=== PATIENT | male | born 1950 | race African-American/Black ===

== ENCOUNTER 2016-06-26 18:07 | Inpatient (IN) | payer SELFPAY ==
[~2016-06-26] VITALS: Ht 170.2 cm; Wt 70.2 kg
--- NOTE | 2016-06-26 18:21 | NUR ---
PT TO ROOM 14. GAIT STEADY. CALL LIGHT WITHIN REACH.
--- NOTE | 2016-06-26 19:16 | NUR ---
PT WAS SHARON COJAMES'ED ON VERBAL OPRDER DR URENA PT HAD SPOTS OF RED DRAINAGE ON MEATUS,DISTENTION THERE WAS A RED CLOT INITIALLY DRAINING THRU THE CQATHN PT HAD 1800CC OUT AND CLAMPED.DR Shimon TROY PT TOLERATED WELL PT REPORTED S/S DYSURIAS X 2+ WEEKS.WORSE PAST 1 WEEK.NO FEVERS.NO HX PROSTSTE .A/O X3
[2016-06-26 19:28] LABS: URINE BILIRUBIN - DIPSTICK NEGATIVE (NEGATIVE); URINE BLOOD DIPSTICK LARGE (NEGATIVE); URINE COLOR YELLOW; URINE GLUCOSE - DIPSTICK NEGATIVE (NEGATIVE); URINE KETONE NEGATIVE (NEGATIVE); URINE LEUK ESTERASE NEGATIVE (NEGATIVE); URINE NITRITE - DIPSTICK NEGATIVE (Negative); URINE PH 5.5 (4.5-8.0); URINE PROTEIN - DIPSTICK NEGATIVE (NEG-TRACE); URINE UROBILINOGEN - DIPSTICK 0.2 E.U./dL (0.2)
[2016-06-26 19:30] LABS: URINE CLARITY HAZY
[2016-06-26 19:44] LABS: URINE RBC 25-50 RBC/hpf (0-5)
--- NOTE | 2016-06-26 20:10 | NUR ---
PT FEELS NO PAIN HERRERA CATH CONTINUES TO DRAIN RED TINGED URINE IN NO DISTRESS
[2016-06-26 20:17] LABS: HEMATOCRIT 40.1 % (39.0-50.0); HEMOGLOBIN 13.1 g/dl (14.0-18.0); IMMATURE GRANULOCYTES 2.7 % (0.0-1.0); MEAN CELL VOLUME 92.6 fL CALC (80.0-100.0); MEAN CORPUSCULAR HGB 30.3 pG CALC (26.0-32.0); MEAN CORPUSCULAR HGB CONC 32.7 g/L CALC (32.0-36.0); NEUT# 9.34 thou/uL (1.82-7.42); RED BLOOD COUNT 4.33 mill/uL (4.70-6.10); RED CELL DISTRI WIDTH 13.3 % (11.5-15.5)
[2016-06-26 20:35] LABS: ALBUMIN 4.1 g/dL (3.2-5.0); BILIRUBIN, TOTAL 0.5 mg/dL (0.0-1.4); CALCIUM 9.6 mg/dL (8.4-10.2); POTASSIUM 4.1 mmol/l (3.5-5.1); TOTAL PROTEIN 8.1 g/dL (6.3-8.2)
[2016-06-26 20:38] LABS: CREATININE 13.1 mg/dL (0.7-1.3)
--- NOTE | 2016-06-26 21:43 | NUR ---
PHONE REPORT TO NURSE DAVIS ON MS
--- NOTE | 2016-06-26 21:53 | NUR ---
TO MS VIA STRETCHER IN IMPROVED STABLE CONDITION
[2016-06-26 22:10] VITALS: BP 171/70
--- NOTE | 2016-06-26 22:10 | NUR ---
PATIENT ADMITTED FROM ER VIA STRETCHER WITH ER STAFF IN ATTENDANCE. PATIENT ASSISTED FROM THE STRETCHER TO THE STANDING SCALE AND THEN TO BED-SLIGHTLY UNSTEADY GAIT. PATIENT IS AWAKE ALERT AND ORIENTEDX3. PATIENT WITH HERRERA CATH DARINING PINK TINGED URINE AT THIS TIME. PATIENT IS BEING ADMITTED FOR OBSTRUCTIVE UROPATHY-STATES THAT HE HAS BEEN HAVING TROUBLE URINATING FOR LAST COUPLE WEEKS AND WHEN HE DOES URINATE IT IS BLOODY. BROUGHT TO ER BY HIS FRIEND TENZIN. PATIENT DENIES ANY PMH OR PSH AT THIS TIME. DENIES ANY ALLERGIES. PATIENT WITH IV SITE TO LEFT AC-IVF LR HUNG AND INFUSING AT 100CC/HR. SITE APPEARS HEALTHY AT THIS TIME. ORIENTED TO ROOM AND SURROUNDINGS. PROVIDED WITH SANDWICH AND DRINK. INSTRUCTED ON USE OF NURSE CALL LIGHT SYSTEM AND TV REMOTE. SAFETY PRECAUTIONS REVIEWED WITH PATIENT. CALLLIGHT IN REACH. WILL CONT TO MONITOR.
--- NOTE | 2016-06-27 00:05 | NUR ---
PATIENT INCONT OF LARGE AMT OF YELLOWISH-BROWN STOOL IN BED AND THEN ON THE FLOOR ON THE WAY TO THE BR. PATIENT ASSISTED WITH SHOWER AND RETURNED TO THE BED. HERRERA CATH CONT TO DRAIN PINK TINGED URINE. CALL LIGHT IN REACH. WILL CONT TO MONITOR.
[2016-06-27 04:30] VITALS: BP 163/67
--- NOTE | 2016-06-27 04:47 | NUR ---
PATIENT RESTING IN BED-HERRERA DRAINING LIGHT PINK URINE AT THIS TIME. PATIENT WITH NO COMPLAINTS AT THIS TIME. CALL LIGHT IN REACH. WILL CONT TO MONITOR.
[2016-06-27 06:41] LABS: ALBUMIN 3.3 g/dL (3.2-5.0); CALCIUM 9.3 mg/dL (8.4-10.2); MAGNESIUM 2.6 mg/dL (1.6-2.3); POTASSIUM 4.3 mmol/l (3.5-5.1)
--- NOTE | 2016-06-27 07:30 | NUR ---
PT IN SEMI FOWLERS POSITION; NO COMPLAINTS VOICED; CALL NAVARRO WITHIN REACH; WILL CONTINUE TO MONITOR
[2016-06-27 07:40] VITALS: BP 132/59
[2016-06-27 10:50] VITALS: BP 127/60
--- NOTE | 2016-06-27 11:46 | NUR ---
PT VISITING WITH FAMILY; DENIES PAIN; HERRERA CATH DRAINING BLOOD TINGE URINE TO BEDSIDE DRAIN; TELE MONITOR IN PLACE; CALL NAVARRO WITHIN REACH; WILL CONTINUE TO MONITOR.
--- NOTE | 2016-06-27 14:52 | NUR ---
DR. EVANS IN TO SEE PT; PLAN OF CARE DISCUSSED
[2016-06-27 15:08] VITALS: BP 123/57
--- NOTE | 2016-06-27 16:00 | NUR ---
PT IN SUPINE POSITION WATCHING TV; DENIES PAIN; HERRERA CONTINUES TO DRAIN BLOOD TINGE URINE TO BEDSIDE DRAIN; CALL NAVARRO WITHIN REACH; WILL CONTINUE TO MONITOR.
--- NOTE | 2016-06-27 18:28 | NUR ---
DR. PERLA ROCKWELL SERVICE NOTIFIED OF CONSULT.
--- NOTE | 2016-06-27 18:41 | NUR ---
DR. DUNCAN GIVEN UPDATE ON PT STATUS; STATES THAT HE WILL SEE THE PT 06/28/16 IN THE AFTERNOON
--- NOTE | 2016-06-27 18:45 | NUR ---
RECEIVED SHIFT REPORT FROM YOKASTA JANE. PATIENT LAYUNG IN BED AND APPEARS NOT TO BE IN ANY DISCOMFORT. PATIENT DENIES PAIN. LR INFUSING AT 100CC/HR VIA PUMP WITHOUT DIFFICULTY.
[2016-06-27 19:10] VITALS: BP 137/62
[2016-06-28] VITALS (7 sets, daily range): BP systolic 130–152; BP diastolic 60–69
--- NOTE | 2016-06-28 | NUR ---
PATIENT RESTING QUIETLY. NO ACUTE DISTRESS NOTED.
--- NOTE | 2016-06-28 04:00 | NUR ---
NO ACUTE CHANGES NOTED IN PATIENT'S CONDITION. LAYING IN BED WITH EYES CLOSED AND APPEARS NOT TO BE IN ANY DISTRESS OR DISCOMFORT.
[2016-06-28 05:24] LABS: HEMATOCRIT 35.1 % (39.0-50.0); HEMOGLOBIN 11.1 g/dl (14.0-18.0); IMMATURE GRANULOCYTES 3.5 % (0.0-1.0); MEAN CELL VOLUME 96.4 fL CALC (80.0-100.0); MEAN CORPUSCULAR HGB 30.5 pG CALC (26.0-32.0); MEAN CORPUSCULAR HGB CONC 31.6 g/L CALC (32.0-36.0); NEUT# 5.89 thou/uL (1.82-7.42); RED BLOOD COUNT 3.64 mill/uL (4.70-6.10); RED CELL DISTRI WIDTH 13.5 % (11.5-15.5)
[2016-06-28 05:25] LABS: BUN 17 mg/dL (8-23); CALCIUM 9.5 mg/dL (8.4-10.2); CARBON DIOXIDE 29 mmol/l (22-30); CHLORIDE 109 mmol/l (95-108); GFR > 60 ML/MIN (>=60 (CALC)); GFR FOR AFR.AMER. > 60 ML/MIN (>=60 (CALC)); GLUCOSE 91 mg/dL (82-115); MAGNESIUM 1.8 mg/dL (1.6-2.3); POTASSIUM 4.3 mmol/l (3.5-5.1); SODIUM 144 mmol/l (137-146)
--- NOTE | 2016-06-28 07:11 | NUR ---
BEDSIDE REPORT RECEIVED FROM YOKASTA JORDAN. PT SITTING UPRIGHT IN BED. REPORTS MODERATE BACK PAIN UNRELIEVED BY TYLENOL. REPORTING OF FURTHER CONCERNS ENCOURAGED. PLAN OF CARE DISCUSSED. CALL LIGHT REVIEWED AND IN REACH. PT STATES UNDERSTANDING.
--- NOTE | 2016-06-28 13:44 | NUR ---
DR. EVANS IN TO SEE PT AT THIS TIME.
--- NOTE | 2016-06-28 16:00 | NUR ---
DR. DUNCAN IN TO SEE PT. DR. DUNCAN REPORTS FORESKIN RETRACTED AND PENILE SWELLING, CORRECTED BY MD. WILL CONTINUE TO MONITOR FOR IMPROVEMENT.
--- NOTE | 2016-06-28 20:00 | NUR ---
PATIENT RESTING IN BED AT THIS TIME-AWAKE ALERT AND ORIENTEDX3. PATIENT WITH NO COMPLAINTS AT THIS TIME. HERRERA CATH PATENT AND DRAINING YELLOW URINE. CATH STRAP IN PLACE. IV SITE TO LEFT FOREARM-SITE APPEARS HEALTHY WITH IVF PATENT AND INFUSING AT KVO RATE. SAFETY PRECAUTIONS REINFORCED. CALL LIGHT IN REACH. WILL CONT TO MONITOR.
--- NOTE | 2016-06-29 | NUR ---
PATIENT APPEARS SLEEPING AT THIS TIME WITH SHEET OVER HIS HEAD. CALL LIGHT IN REACH. WILL CONT TO MONITOR.
[2016-06-29 03:11] VITALS: BP 136/60
--- NOTE | 2016-06-29 03:50 | NUR ---
PATIENT APPEARS SLEEPING AT THIS TIME WITH EYES CLOSED. HERRERA PATENT AND DRAINING YELLOW URINE. CALL LIGHT IN REACH. WILL CONT TO MONITOR.
[2016-06-29 06:22] LABS: HEMATOCRIT 36.3 % (39.0-50.0); HEMOGLOBIN 11.5 g/dl (14.0-18.0); IMMATURE GRANULOCYTES 2.8 % (0.0-1.0); MEAN CELL VOLUME 96.8 fL CALC (80.0-100.0); MEAN CORPUSCULAR HGB 30.7 pG CALC (26.0-32.0); MEAN CORPUSCULAR HGB CONC 31.7 g/L CALC (32.0-36.0); NEUT# 7.71 thou/uL (1.82-7.42); RED BLOOD COUNT 3.75 mill/uL (4.70-6.10); RED CELL DISTRI WIDTH 13.5 % (11.5-15.5)
[2016-06-29 06:52] LABS: ANION GAP 11 (6-22 (CALC)); BUN 10 mg/dL (8-23); BUN/CREATININE RATIO 13 (12-20 (CALC)); CALCIUM 9.4 mg/dL (8.4-10.2); CARBON DIOXIDE 30 mmol/l (22-30); CHLORIDE 107 mmol/l (95-108); CREATININE 0.8 mg/dL (0.7-1.3); GFR > 60 ML/MIN (>=60 (CALC)); GFR FOR AFR.AMER. > 60 ML/MIN (>=60 (CALC)); GLUCOSE 81 mg/dL (82-115); POTASSIUM 4.2 mmol/l (3.5-5.1); SODIUM 144 mmol/l (137-146)
--- NOTE | 2016-06-29 07:00 | NUR ---
REPORT RECIEVED FROM YOKASTA DAVIS; PT RESTING IN BED; NO S/S OF DISTRESS NOTED; HERRERA DRAINING PER GRAVITY WITH CLEAR YELLOW URINE NOTED; PT DENIES ANY NEEDS AT THIS TIME; CALL LIGHT WITHIN REACH; WILL CONTINUE TO MONITOR
--- NOTE | 2016-06-29 08:02 | NUR ---
SPOKE WITH DR. DUNCAN WHO RECOMMENDS PATIENT START CASADEX 50MG PO DAILY OR FLUTAMIDE 250MG PO TID TO TAKE STARTING TODAY AND WHEN DISCHARGED HOME. SPOKE WITH [facility] IN PHARM AND WE DO NOT HAVE EITHER OF THESE MEDICATIONS STOCKED HERE. RECOMMENDS THAT MD WRITE RX AND HAVE FAMILY PICK IT UP SO THAT PATIENT CAN GET STARTED ON ONE OF THESE MEDS. INFORMATION PASSED ON TO VINNY TEMPLETON. DR. DUNCAN WILL FOLLOW/UP WITH PATIENT FOR PROSTATE BX NEXT WEEK.
[2016-06-29 08:36] VITALS: BP 136/64
--- NOTE | 2016-06-29 11:00 | NUR ---
PT OFF FLOOR TO NM AT THIS TIME; PT IN STABLE CONDITION
[2016-06-29] MEDS ORDERED: TAMSULOSIN HCL0.4 MG PO (11:44)
[2016-06-29] MEDS ORDERED: FINASTERIDE5 MG PO (11:44)
[2016-06-29] MEDS ORDERED: AMLODIPINE BESYL5 MG PO (11:44)
[2016-06-29] MEDS ORDERED: KEFLEX500 M1 PO (11:44)
[2016-06-29 12:25] VITALS: BP 143/60
[2016-06-29] MEDS ORDERED: CASODEX50 MG PO (14:04)
--- NOTE | 2016-06-29 15:00 | NUR ---
ED CALLED TO REPORT ST ELEVATION IN PT CARDIAC MONITORING; RT NOTIFIED AND EKG DONE; DR EVANS NOTIFIED AND STAT TROP ORDERED; PT DENIES ANY CP OR SOB; TELE IN PLACE; WILL CONTINUE TO MONITOR
--- NOTE | 2016-06-29 17:00 | NUR ---
PT SITTING UP AT BEDSIDE; DR EVANS AT BEDSIDE TO DISCUSS POC; HERRERA IN PLACE DRAINING CLEAR YELLOW URINE PER GRAVITY; PT DENIES ANY NEEDS AT THIS TIME; CALL LIGHT WIHTIN REACH WILL CONTINUE TO MONITOR
[2016-06-29 17:16] VITALS: BP 140/59
[2016-06-29 19:02] VITALS: BP 134/59
--- NOTE | 2016-06-29 22:05 | NUR ---
ED CALLED TO SAY PT.TELEMETRY SHOWED ST ELEVATIONS FROM SR; PT.IS ASYMPTOMATIC AND V/S 132/62, HR 83, 93%SAT; PT.DENIES ANY PAIN, PRESSURE,NAUSEA OR ANY OTHER SYMPTOMS; PT.STATES, "I AM GOOD." IT WAS ADVISED UPON REPORT THAT PT.WAS REPORTED TO HAVE HAD ST ELEVATIONS/ED ABLE SEAMAN EARLIER IN THE DAY AND THAT AN EKG WAS ORDERED SHOWING ST ELEVATIONS AND WAS NOTIFIED ALONG W/ DR. PATRICIA WHO IS AWARE OF THE ST ELEVATIONS AND IS ORDERING AN ECHO TOMORROW ALONG W/ TROPONINS Q6; I WILL CONINUE TO MONITOR PT., PT.INSTRUCTED TO CALL IF ANY SYMPTOMS ARISE, CALL LIGHT W/IN REACH
--- NOTE | 2016-06-29 22:36 | NUR ---
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
[2016-06-29 23:33] VITALS: BP 137/62
--- NOTE | 2016-06-30 01:15 | NUR ---
PT.SLEEPING, AWOKE TO MY ENTERING ROOM, DENIES ANY DISCOMFORT OR NAUSEA AT THIS TIME, PT.APPEARS STABLE; WILL CONTINUE TO MONITOR, PT.INSTRUCTED TO CALL NEEDS ARISE OR IF ANY SYMPTOMS ARISE; CALL LIGHT W/IN REACH
[2016-06-30 04:13] VITALS: BP 145/64
--- NOTE | 2016-06-30 05:15 | NUR ---
PT.MEDICATED ORDERS PROVIDE; PT.DENIES ANY NEEDS AT THIS TIME; WILL CONTINUE TO MONITOR; PT.ENCOURAGED TO CALL NEEDS ARISE, CALL LIGHT W/IN REACH
--- NOTE | 2016-06-30 07:30 | NUR ---
PT IN HIGH FOWLERS POSITIONED; TOLERATING BREAKFAST WELL; NO COMPLAINTS VOICED; CALL NAVARRO WITHIN REACH; WILL CONTINUE TO MONITOR.
[2016-06-30 08:03] VITALS: BP 127/55
--- NOTE | 2016-06-30 10:06 | NUR ---
PT RESTING WITH EYES CLOSED; AROUSED EASILY TO VERBAL STIMULI; DENIES PAIN; TELE MONITOR IN PLACE; IVF INFUSING WITHOUT DIFFICULTY; DR. EVANS IN TO SEE PT; PLAN OF CARE DISCUSSED;
--- NOTE | 2016-06-30 13:04 | NUR ---
PT ASSISTED TO BRP; NO COMPLAINTS VOICED AT THIS TIME; HERRERA DRAINING CLEAR YELLOW URINE TO BEDSIDE DRAIN; FAMILY AT BEDSIDE; CALL NAVAROR WITHIN REACH; WILL CONTINUE TO MONITOR.
[2016-06-30 16:00] VITALS: BP 141/65
--- NOTE | 2016-06-30 16:04 | NUR ---
PT WATCHING TV; NO COMPLAINTS VOICED; CALL NAVARRO WITHIN REACH; WILL CONTINUE TO MONITOR.
--- NOTE | 2016-06-30 18:40 | NUR ---
Discharge instructions given. Patient verbalizes understanding of same. Discharged in stable condition via Wheelchair to Home with family. All belongings sent with pt.
== END 2016-06-30 18:30 | DRG 723 ==
LOC: ENPENDDIS → ED 18:07 → ED-I 20:40 → ED 21:09 → MS2 21:10
PROVIDERS: Emergency Medicine; Internal Medicine; ADMIT Internal Medicine; ATTEND Internal Medicine
PROC: 0T9B70Z Drainage of Bladder with Drainage Device, Via Natural or Artificial Opening (ICD-10-PCS; principal; 2016-06-26)
DX: C61 Malignant neoplasm of prostate (principal); N17.9 Acute kidney failure, unspecified; C79.51 Secondary malignant neoplasm of bone; N40.1 Benign prostatic hyperplasia with lower urinary tract symptoms; F17.210 Nicotine dependence, cigarettes, uncomplicated; R35.0 Frequency of micturition; R39.15 Urgency of urination; R39.12 Poor urinary stream; I10 Essential (primary) hypertension; F12.90 Cannabis use, unspecified, uncomplicated; R31.0 Gross hematuria; N32.0 Bladder-neck obstruction; R94.31 Abnormal electrocardiogram [ECG] [EKG]; R01.1 Cardiac murmur, unspecified; R59.0 Localized enlarged lymph nodes
CPT/HCPCS: A9503

== ENCOUNTER 2016-07-05 09:47 | Day surgery (SDC) | payer SELFPAY ==
[~2016-07-05] VITALS: Ht 172.7 cm; Wt 74.4 kg
[~2016-07-05 09:47] MED LIST: AMLODIPINE BESYL5 MG PO; CASODEX50 MG PO; FINASTERIDE5 MG PO; KEFLEX500 M1 PO; TAMSULOSIN HCL0.4 MG PO
[2016-07-05] MEDS ORDERED: CIPROFLOXACN500 MG PO (13:07)
[2016-07-05 13:16] VITALS: BP 135/63
== END 2016-07-05 13:30 | disposition home or self-care (01) | DRG 723 ==
LOC: ORM 09:47
PROVIDERS: ATTEND Urology
PROC: 0VB03ZX Excision of Prostate, Percutaneous Approach, Diagnostic (ICD-10-PCS; principal; 2016-07-05)
PROC: 0TJB8ZZ Inspection of Bladder, Via Natural or Artificial Opening Endoscopic (ICD-10-PCS; 2016-07-05)
DX: C61 Malignant neoplasm of prostate (principal); C79.9 Secondary malignant neoplasm of unspecified site; N32.0 Bladder-neck obstruction; R33.8 Other retention of urine; I10 Essential (primary) hypertension; F17.210 Nicotine dependence, cigarettes, uncomplicated

== ENCOUNTER 2017-02-24 15:05 | Emergency (ER) | payer SELFPAY ==
[~2017-02-24] VITALS: Ht 172.7 cm; Wt 63.0 kg
[~2017-02-24 15:05] MED LIST changes: +CIPROFLOXACN500 MG PO
[2017-02-24 15:45] LABS: HEMATOCRIT 26.4 % (39.0-50.0); HEMOGLOBIN 7.9 g/dl (14.0-18.0); IMMATURE GRANULOCYTES 1.5 % (0.0-1.0); MEAN CELL VOLUME 97.4 fL CALC (80.0-100.0); MEAN CORPUSCULAR HGB 29.2 pG CALC (26.0-32.0); MEAN CORPUSCULAR HGB CONC 29.9 g/L CALC (32.0-36.0); NEUT# 4.71 thou/uL (1.82-7.42); RED BLOOD COUNT 2.71 mill/uL (4.70-6.10); RED CELL DISTRI WIDTH 16.5 % (11.5-15.5)
[2017-02-24 16:33] LABS: URINE BILIRUBIN - DIPSTICK NEGATIVE (NEGATIVE); URINE BLOOD DIPSTICK LARGE (NEGATIVE); URINE GLUCOSE - DIPSTICK NEGATIVE (NEGATIVE); URINE KETONE TRACE mg/dL (NEGATIVE); URINE PH 7.5 (4.5-8.0); URINE PROTEIN - DIPSTICK >=300 mg/dL (NEG-TRACE); URINE UROBILINOGEN - DIPSTICK >=8.0 E.U./dL (0.2)
[2017-02-24 16:34] LABS: URINE CLARITY CLOUDY; URINE COLOR RED; URINE LEUK ESTERASE SMALL (NEGATIVE); URINE NITRITE - DIPSTICK POSITIVE (Negative)
[2017-02-24 16:37] LABS: URINE BACTERIA FEW hpf; URINE RBC TNTC RBC/hpf (0-5); URINE SQUAMOUS EPITHELIAL CELL FEW EPI/hpf (0-FEW)
[2017-02-24 16:48] LABS: ANION GAP 14 (6-22 (CALC)); BUN 14 mg/dL (8-23); BUN/CREATININE RATIO 13 (12-20 (CALC)); CALCIUM 9.5 mg/dL (8.4-10.2); CARBON DIOXIDE 26 mmol/l (22-30); CHLORIDE 105 mmol/l (95-108); CREATININE 1.1 mg/dL (0.7-1.3); GFR > 60 ML/MIN (>=60 (CALC)); GFR FOR AFR.AMER. > 60 ML/MIN (>=60 (CALC)); GLUCOSE 108 mg/dL (82-115); POTASSIUM 3.8 mmol/l (3.5-5.1); SODIUM 141 mmol/l (137-146)
[2017-02-24 17:03] LABS: INTERNATIONAL NORMALIZED RATIO 1.1 RATIO (0.7-1.3); PROTHROMBIN TIME 11.8 SECONDS (9.0-12.5)
[2017-02-24 18:00] VITALS: BP 154/66
== END 2017-02-24 18:00 | disposition short-term general hospital (02) | DRG 696 ==
LOC: ED 15:05
PROVIDERS: Family Medicine
DX: R31.9 Hematuria, unspecified (principal); I82.512 Chronic embolism and thrombosis of left femoral vein; F17.210 Nicotine dependence, cigarettes, uncomplicated; Z85.46 Personal history of malignant neoplasm of prostate; B96.20 Unspecified Escherichia coli [E. coli] as the cause of diseases classified elsewhere

== ENCOUNTER 2017-04-15 07:11 | Emergency (ER) | payer MEDICAID ==
[~2017-04-15] VITALS: Ht 172.7 cm; Wt 64.0 kg
[2017-04-15 08:10] VITALS: BP 133/65
[2017-04-15] MEDS ORDERED: POLY-IRON150 MG PO (08:29)
== END 2017-04-15 08:20 | disposition home or self-care (01) | DRG 700 ==
LOC: ED 07:11
PROC: 0T2BX0Z Change Drainage Device in Bladder, External Approach (ICD-10-PCS; principal; 2017-04-15)
DX: T83.098A Other mechanical complication of other urinary catheter, initial encounter (principal); C61 Malignant neoplasm of prostate; R10.30 Lower abdominal pain, unspecified

== ENCOUNTER 2017-04-29 08:11 | Emergency (ER) | payer MEDICAID ==
[~2017-04-29] VITALS: Ht 172.7 cm; Wt 60.0 kg
[~2017-04-29 08:11] MED LIST changes: +POLY-IRON150 MG PO
[2017-04-29 09:30] VITALS: BP 118/73
== END 2017-04-29 09:30 | disposition home or self-care (01) | DRG 700 ==
LOC: ED 08:11
PROC: 0T2BX0Z Change Drainage Device in Bladder, External Approach (ICD-10-PCS; principal; 2017-04-29)
DX: T83.091A Other mechanical complication of indwelling urethral catheter, initial encounter (principal); F17.210 Nicotine dependence, cigarettes, uncomplicated; Z85.46 Personal history of malignant neoplasm of prostate; Y84.6 Urinary catheterization as the cause of abnormal reaction of the patient, or of later complication, without mention of misadventure at the time of the procedure

== ENCOUNTER 2017-05-11 12:40 | Emergency (ER) | payer MEDICAID ==
[~2017-05-11] VITALS: Ht 172.7 cm; Wt 61.4 kg
[2017-05-11 14:01] VITALS: BP 126/57
== END 2017-05-11 14:07 | disposition home or self-care (01) | DRG 700 ==
LOC: ED 12:40
PROC: 0T2BX0Z Change Drainage Device in Bladder, External Approach (ICD-10-PCS; principal; 2017-05-11)
DX: T83.091A Other mechanical complication of indwelling urethral catheter, initial encounter (principal); R33.9 Retention of urine, unspecified; F17.210 Nicotine dependence, cigarettes, uncomplicated; Y84.6 Urinary catheterization as the cause of abnormal reaction of the patient, or of later complication, without mention of misadventure at the time of the procedure; Z85.46 Personal history of malignant neoplasm of prostate

== ENCOUNTER 2017-05-23 17:51 | Emergency (ER) | payer MEDICAID ==
[~2017-05-23] VITALS: Ht 172.7 cm; Wt 60.0 kg
[2017-05-23 18:42] VITALS: BP 118/77
== END 2017-05-23 18:53 | disposition home or self-care (01) | DRG 700 ==
LOC: ED 17:51
PROC: 0T2BX0Z Change Drainage Device in Bladder, External Approach (ICD-10-PCS; principal; 2017-05-23)
DX: T83.098A Other mechanical complication of other urinary catheter, initial encounter (principal); F17.210 Nicotine dependence, cigarettes, uncomplicated; N40.0 Benign prostatic hyperplasia without lower urinary tract symptoms; Y84.6 Urinary catheterization as the cause of abnormal reaction of the patient, or of later complication, without mention of misadventure at the time of the procedure; Z85.46 Personal history of malignant neoplasm of prostate

== ENCOUNTER 2017-06-09 09:37 | Emergency (ER) | payer MEDICAID ==
[~2017-06-09] VITALS: Ht 172.7 cm; Wt 59.0 kg
[2017-06-09 10:34] LABS: URINE BLOOD DIPSTICK LARGE (NEGATIVE); URINE GLUCOSE - DIPSTICK 100 mg/dL (NEGATIVE); URINE KETONE 15 mg/dL (NEGATIVE); URINE PH 7.5 (4.5-8.0); URINE PROTEIN - DIPSTICK >=300 mg/dL (NEG-TRACE); URINE SPECIFIC GRAVITY 1.015
[2017-06-09 10:35] LABS: URINE BILIRUBIN - DIPSTICK NEGATIVE (NEGATIVE); URINE CLARITY TURBID; URINE COLOR BLOODY; URINE LEUK ESTERASE MODERATE (NEGATIVE); URINE NITRITE - DIPSTICK POSITIVE (Negative)
[2017-06-09 10:36] LABS: URINE RBC TNTC RBC/hpf (0-5)
[2017-06-09] MEDS ORDERED: BACTRIM DS1 TAB PO (10:45)
[2017-06-09 11:02] VITALS: BP 142/68
== END 2017-06-09 11:08 | disposition home or self-care (01) | DRG 700 ==
LOC: ED 09:37
PROVIDERS: Family Medicine
PROC: 0T2BX0Z Change Drainage Device in Bladder, External Approach (ICD-10-PCS; principal; 2017-06-09)
DX: T83.098A Other mechanical complication of other urinary catheter, initial encounter (principal); C67.9 Malignant neoplasm of bladder, unspecified; F17.210 Nicotine dependence, cigarettes, uncomplicated; R31.9 Hematuria, unspecified; Z85.46 Personal history of malignant neoplasm of prostate; Y84.6 Urinary catheterization as the cause of abnormal reaction of the patient, or of later complication, without mention of misadventure at the time of the procedure

== ENCOUNTER 2017-06-29 19:40 | Inpatient (IN) | payer MEDICARE, MEDICAID ==
[~2017-06-29] VITALS: Ht 172.7 cm; Wt 62.0 kg
[~2017-06-29 19:40] MED LIST changes: +BACTRIM DS1 TAB PO
[2017-06-29 20:39] LABS: IMMATURE GRANULOCYTES 3.7 % (0.0-1.0); MEAN CELL VOLUME 94.1 fL CALC (80.0-100.0); MEAN CORPUSCULAR HGB 26.8 pG CALC (26.0-32.0); MEAN CORPUSCULAR HGB CONC 28.5 g/L CALC (32.0-36.0); RED BLOOD COUNT 2.05 mill/uL (4.70-6.10); RED CELL DISTRI WIDTH 17.8 % (11.5-15.5)
[2017-06-29 20:50] LABS: ALBUMIN 3.2 g/dL (3.2-5.0); ALKALINE PHOSPHATASE 414 u/l (38-126); ANION GAP 17 (6-22 (CALC)); BILIRUBIN, TOTAL 0.2 mg/dL (0.0-1.4); BUN 32 mg/dL (8-23); BUN/CREATININE RATIO 23 (12-20 (CALC)); CARBON DIOXIDE 25 mmol/l (22-30); CHLORIDE 104 mmol/l (95-108); CREATININE 1.4 mg/dL (0.7-1.3); GFR 51 ML/MIN (>=60 (CALC)); GFR FOR AFR.AMER. > 60 ML/MIN (>=60 (CALC)); POTASSIUM 4.3 mmol/l (3.5-5.1); SGPT/ALT 30 u/l (11-66); SODIUM 141 mmol/l (137-146); TOTAL PROTEIN 6.3 g/dL (6.3-8.2)
[2017-06-29 20:53] LABS: SGOT/AST 63 u/l (19-48)
[2017-06-29 21:01] LABS: MYOGLOBIN 26 ng/mL (0 - 121)
[2017-06-29 21:08] LABS: INTERNATIONAL NORMALIZED RATIO 2.1 RATIO (0.7-1.3); PROTHROMBIN TIME 24.1 SECONDS (9.0-12.5)
[2017-06-29 21:12] LABS: HEMOGLOBIN 5.5 g/dl (14.0-18.0); PLATELET COUNT 255 thou/uL (130-400)
[2017-06-29 21:13] LABS: BAND 9 % (0-8); HEMATOCRIT 19.3 % (39.0-50.0); MANUAL DIFFERENTIAL YES
[2017-06-29 21:14] LABS: ANISOCYTOSIS FEW; HYPOCHROMIA MODERATE
[2017-06-29 21:19] LABS: URINE BILIRUBIN - DIPSTICK NEGATIVE (NEGATIVE); URINE BLOOD DIPSTICK LARGE (NEGATIVE); URINE COLOR YELLOW; URINE GLUCOSE - DIPSTICK NEGATIVE (NEGATIVE); URINE KETONE TRACE mg/dL (NEGATIVE); URINE NITRITE - DIPSTICK NEGATIVE (Negative); URINE PH 7.5 (4.5-8.0); URINE PROTEIN - DIPSTICK 100 mg/dL (NEG-TRACE); URINE SPECIFIC GRAVITY <=1.005
[2017-06-29 21:28] LABS: URINE LEUK ESTERASE MODERATE (NEGATIVE)
[2017-06-29 21:29] LABS: URINE CLARITY CLOUDY
[2017-06-29 21:30] LABS: URINE BACTERIA MANY hpf; URINE RBC TNTC RBC/hpf (0-5); URINE SQUAMOUS EPITHELIAL CELL FEW EPI/hpf (0-FEW); URINE TRIP PHOS CRYSTALS MANY lpf; URINE WBC 20-50 WBC/hpf (0-5)
[2017-06-29] MEDS ORDERED: COUMADIN5 MG PO (21:38)
[2017-06-29 22:15] VITALS: BP 106/52
[2017-06-29 23:00] VITALS: BP 106/43
[2017-06-29 23:30] VITALS: BP 119/46
[2017-06-30] VITALS (11 sets, daily range): BP systolic 109–135; BP diastolic 46–60
[2017-06-30 09:58] LABS: IMMATURE GRANULOCYTES 3.6 % (0.0-1.0); MEAN CELL VOLUME 90.1 fL CALC (80.0-100.0); MEAN CORPUSCULAR HGB 28.6 pG CALC (26.0-32.0); MEAN CORPUSCULAR HGB CONC 31.8 g/L CALC (32.0-36.0); NEUT# 4.9 thou/uL (1.82-7.42); RED BLOOD COUNT 3.04 mill/uL (4.70-6.10)
[2017-06-30 09:59] LABS: HEMATOCRIT 27.4 % (39.0-50.0); HEMOGLOBIN 8.7 g/dl (14.0-18.0)
[2017-06-30 10:23] LABS: ALBUMIN 2.8 g/dL (3.2-5.0); ALKALINE PHOSPHATASE 350 u/l (38-126); ANION GAP 13 (6-22 (CALC)); BILIRUBIN, TOTAL 0.6 mg/dL (0.0-1.4); BUN 25 mg/dL (8-23); BUN/CREATININE RATIO 29 (12-20 (CALC)); CARBON DIOXIDE 26 mmol/l (22-30); CHLORIDE 107 mmol/l (95-108); CREATININE 0.9 mg/dL (0.7-1.3); GFR > 60 ML/MIN (>=60 (CALC)); GFR FOR AFR.AMER. > 60 ML/MIN (>=60 (CALC)); MAGNESIUM 2.1 mg/dL (1.6-2.3); POTASSIUM 4.3 mmol/l (3.5-5.1); SGOT/AST 55 u/l (19-48); SGPT/ALT 27 u/l (11-66); SODIUM 141 mmol/l (137-146); TOTAL PROTEIN 5.9 g/dL (6.3-8.2)
[2017-07-01] VITALS (11 sets, daily range): BP systolic 116–146; BP diastolic 44–69
[2017-07-01 05:29] LABS: HEMATOCRIT 27.8 % (39.0-50.0); HEMOGLOBIN 8.7 g/dl (14.0-18.0); MEAN CELL VOLUME 90.6 fL CALC (80.0-100.0); MEAN CORPUSCULAR HGB 28.3 pG CALC (26.0-32.0); MEAN CORPUSCULAR HGB CONC 31.3 g/L CALC (32.0-36.0); NEUT# 4.7 thou/uL (1.82-7.42); RED BLOOD COUNT 3.07 mill/uL (4.70-6.10)
[2017-07-01 05:53] LABS: ACT PARTIAL THROMBO TIME 50.9 SECONDS (20.0-32.5); INTERNATIONAL NORMALIZED RATIO 1.8 RATIO (0.7-1.3); PROTHROMBIN TIME 20.2 SECONDS (9.0-12.5)
[2017-07-01 05:54] LABS: ALBUMIN 2.8 g/dL (3.2-5.0); ALKALINE PHOSPHATASE 354 u/l (38-126); ANION GAP 13 (6-22 (CALC)); BILIRUBIN, TOTAL 0.3 mg/dL (0.0-1.4); BUN 20 mg/dL (8-23); BUN/CREATININE RATIO 27 (12-20 (CALC)); CARBON DIOXIDE 26 mmol/l (22-30); CHLORIDE 105 mmol/l (95-108); CREATININE 0.7 mg/dL (0.7-1.3); GFR > 60 ML/MIN (>=60 (CALC)); GFR FOR AFR.AMER. > 60 ML/MIN (>=60 (CALC)); POTASSIUM 4.6 mmol/l (3.5-5.1); SGOT/AST 53 u/l (19-48); SGPT/ALT 27 u/l (11-66); SODIUM 140 mmol/l (137-146); TOTAL PROTEIN 5.8 g/dL (6.3-8.2)
[2017-07-02 00:19] VITALS: BP 129/55
[2017-07-02 04:25] VITALS: BP 125/66
[2017-07-02 06:07] LABS: ALBUMIN 2.7 g/dL (3.2-5.0); ALKALINE PHOSPHATASE 365 u/l (38-126); ANION GAP 12 (6-22 (CALC)); BILIRUBIN, TOTAL 0.3 mg/dL (0.0-1.4); BUN 16 mg/dL (8-23); BUN/CREATININE RATIO 21 (12-20 (CALC)); CARBON DIOXIDE 28 mmol/l (22-30); CHLORIDE 102 mmol/l (95-108); CREATININE 0.8 mg/dL (0.7-1.3); GFR > 60 ML/MIN (>=60 (CALC)); GFR FOR AFR.AMER. > 60 ML/MIN (>=60 (CALC)); MAGNESIUM 1.9 mg/dL (1.6-2.3); POTASSIUM 4.7 mmol/l (3.5-5.1); SGOT/AST 58 u/l (19-48); SGPT/ALT 28 u/l (11-66); SODIUM 138 mmol/l (137-146); TOTAL PROTEIN 5.7 g/dL (6.3-8.2)
[2017-07-02 06:38] LABS: HEMATOCRIT 28.6 % (39.0-50.0); HEMOGLOBIN 8.8 g/dl (14.0-18.0); IMMATURE GRANULOCYTES 2.1 % (0.0-1.0); MEAN CELL VOLUME 91.4 fL CALC (80.0-100.0); MEAN CORPUSCULAR HGB 28.1 pG CALC (26.0-32.0); MEAN CORPUSCULAR HGB CONC 30.8 g/L CALC (32.0-36.0); NEUT# 5.17 thou/uL (1.82-7.42); RED BLOOD COUNT 3.13 mill/uL (4.70-6.10); RED CELL DISTRI WIDTH 16.4 % (11.5-15.5)
[2017-07-02 08:11] VITALS: BP 132/58
[2017-07-02 11:21] VITALS: BP 129/61
[2017-07-02 15:21] VITALS: BP 127/49
[2017-07-02 19:15] VITALS: BP 127/59
[2017-07-03 00:25] VITALS: BP 123/68
[2017-07-03 04:15] VITALS: BP 125/53
[2017-07-03 05:32] LABS: HEMATOCRIT 28.5 % (39.0-50.0); HEMOGLOBIN 8.8 g/dl (14.0-18.0); IMMATURE GRANULOCYTES 2.2 % (0.0-1.0); MEAN CELL VOLUME 91.3 fL CALC (80.0-100.0); MEAN CORPUSCULAR HGB 28.2 pG CALC (26.0-32.0); MEAN CORPUSCULAR HGB CONC 30.9 g/L CALC (32.0-36.0); NEUT# 5.17 thou/uL (1.82-7.42); RED BLOOD COUNT 3.12 mill/uL (4.70-6.10); RED CELL DISTRI WIDTH 15.9 % (11.5-15.5)
[2017-07-03 05:50] LABS: ANION GAP 14 (6-22 (CALC)); BUN 20 mg/dL (8-23); BUN/CREATININE RATIO 25 (12-20 (CALC)); CARBON DIOXIDE 27 mmol/l (22-30); CHLORIDE 101 mmol/l (95-108); CREATININE 0.8 mg/dL (0.7-1.3); GFR > 60 ML/MIN (>=60 (CALC)); GFR FOR AFR.AMER. > 60 ML/MIN (>=60 (CALC)); POTASSIUM 4.6 mmol/l (3.5-5.1); SODIUM 136 mmol/l (137-146)
[2017-07-03 08:04] VITALS: BP 133/62
[2017-07-03 11:16] VITALS: BP 142/64
[2017-07-03 12:30] LABS: INTERNATIONAL NORMALIZED RATIO 1.2 RATIO (0.7-1.3); PROTHROMBIN TIME 13.2 SECONDS (9.0-12.5)
[2017-07-03 15:21] VITALS: BP 139/58
[2017-07-03 19:30] VITALS: BP 129/52
[2017-07-04] VITALS: BP 131/64
[2017-07-04 04:17] VITALS: BP 130/59
[2017-07-04 05:39] LABS: INTERNATIONAL NORMALIZED RATIO 1.2 RATIO (0.7-1.3); PROTHROMBIN TIME 13.4 SECONDS (9.0-12.5)
[2017-07-04 05:43] LABS: ANION GAP 11 (6-22 (CALC)); BUN 21 mg/dL (8-23); BUN/CREATININE RATIO 26 (12-20 (CALC)); CARBON DIOXIDE 29 mmol/l (22-30); CHLORIDE 100 mmol/l (95-108); CREATININE 0.8 mg/dL (0.7-1.3); GFR > 60 ML/MIN (>=60 (CALC)); GFR FOR AFR.AMER. > 60 ML/MIN (>=60 (CALC)); POTASSIUM 4.3 mmol/l (3.5-5.1); SODIUM 135 mmol/l (137-146)
[2017-07-04 05:46] LABS: HEMATOCRIT 28.3 % (39.0-50.0); HEMOGLOBIN 8.8 g/dl (14.0-18.0); IMMATURE GRANULOCYTES 2.1 % (0.0-1.0); MEAN CORPUSCULAR HGB 28.3 pG CALC (26.0-32.0); MEAN CORPUSCULAR HGB CONC 31.1 g/L CALC (32.0-36.0); NEUT# 5.51 thou/uL (1.82-7.42); RED BLOOD COUNT 3.11 mill/uL (4.70-6.10); RED CELL DISTRI WIDTH 15.8 % (11.5-15.5)
[2017-07-04 08:02] VITALS: BP 142/62
[2017-07-04 11:24] VITALS: BP 117/51
[2017-07-04 16:55] VITALS: BP 122/49
[2017-07-04 19:45] VITALS: BP 126/83
== END 2017-07-04 20:15 | disposition short-term general hospital (02) | DRG 715 ==
LOC: ED 19:40 → ED-I 21:29 → ED 21:43 → MS2 21:44
PROVIDERS: Emergency Medicine; Internal Medicine; Nurse Practitioner Family; ADMIT Internal Medicine; ATTEND Internal Medicine
PROC: 30233N1 Transfusion of Nonautologous Red Blood Cells into Peripheral Vein, Percutaneous Approach (ICD-10-PCS; principal; 2017-06-29)
PROC: 30233N1 Transfusion of Nonautologous Red Blood Cells into Peripheral Vein, Percutaneous Approach (ICD-10-PCS; 2017-06-30)
PROC: 30233N1 Transfusion of Nonautologous Red Blood Cells into Peripheral Vein, Percutaneous Approach (ICD-10-PCS; 2017-06-30)
PROC: 0W3R8ZZ Control Bleeding in Genitourinary Tract, Via Natural or Artificial Opening Endoscopic (ICD-10-PCS; 2017-07-01)
PROC: 0TCB8ZZ Extirpation of Matter from Bladder, Via Natural or Artificial Opening Endoscopic (ICD-10-PCS; 2017-07-01)
PROC: 0TBD8ZX Excision of Urethra, Via Natural or Artificial Opening Endoscopic, Diagnostic (ICD-10-PCS; 2017-07-01)
DX: C61 Malignant neoplasm of prostate (principal); N17.9 Acute kidney failure, unspecified; R64 Cachexia; C79.51 Secondary malignant neoplasm of bone; N13.8 Other obstructive and reflux uropathy; H05.20 Unspecified exophthalmos; N39.0 Urinary tract infection, site not specified; T83.518A Infection and inflammatory reaction due to other urinary catheter, initial encounter; D50.0 Iron deficiency anemia secondary to blood loss (chronic); B95.2 Enterococcus as the cause of diseases classified elsewhere; F12.90 Cannabis use, unspecified, uncomplicated; F17.210 Nicotine dependence, cigarettes, uncomplicated; K59.00 Constipation, unspecified; N40.1 Benign prostatic hyperplasia with lower urinary tract symptoms; R33.8 Other retention of urine; R31.0 Gross hematuria; H54.62 Unqualified visual loss, left eye, normal vision right eye; H47.092 Other disorders of optic nerve, not elsewhere classified, left eye; M62.50 Muscle wasting and atrophy, not elsewhere classified, unspecified site; Y84.6 Urinary catheterization as the cause of abnormal reaction of the patient, or of later complication, without mention of misadventure at the time of the procedure; Z91.19 Patient's noncompliance with other medical treatment and regimen; Z96.0 Presence of urogenital implants; Z90.79 Acquired absence of other genital organ(s); Z79.01 Long term (current) use of anticoagulants; Z86.718 Personal history of other venous thrombosis and embolism; Z68.20 Body mass index [BMI] 20.0-20.9, adult
CPT/HCPCS: A9579; J1650; P9016